=== PATIENT | male | born 1950 | race Caucasian/White ===

== ENCOUNTER 2020-09-08 22:22 | Inpatient (IN) | payer OTHER, MEDICARE ==
[~2020-09-08] VITALS: Ht 170.2 cm; Wt 83.0 kg
[~2020-09-08 22:22] MED LIST: AVALIDE 150-121 EACH; AVALIDE 300-121 EACH PO; AVAPRO300 MG PO; CELEBREX 200 M200 M1 PO; COLACE100 MG PO; CRESTOR10 MG PO; FLEXERIL PO; HYDROCHLOROTH12.5 MG PO; MOBIC15 MG PO; NORCO 10-325 T1 EACH PO; OXYCONTIN10 M1 PO; POLYMYXIN B/TMP10 ML OP; POLYTRIM OPHTHALMIC
[2020-09-08 22:26] VITALS: BP 131/69
[2020-09-08] MEDS ORDERED: CRESTOR20 MG PO (22:30)
[2020-09-08 23:05] LABS: ABSOLUTE NEUTROPHILS 7.4 thou/uL (1.4-8.2); BASOPHILS 0.9 % (0.0-2.0); HEMOGLOBIN 14.8 gm/dL (14.0-18.0); LYMPHOCYTES 21.3 % (24.0-44.0); MCH 31.2 pg (26.0-34.0); MCHC 34.5 g/dL (28.0-37.0); MCV 90.4 fL (80.0-100.0); MONOCYTES 7.7 % (1.0-8.0); PLATELET COUNT 301 thou/uL (150-400); POLYS 67.1 % (36.0-66.0); RBC 4.76 mil/uL (4.50-6.00); RDW 13.9 % (10.5-14.5)
[2020-09-08 23:12] LABS: ANION GAP 8 mmol/L (7-16); BUN 22 mg/dL (7-18); CALCIUM 9.3 mg/dL (8.5-10.1); CHLORIDE 100 mmol/L (98-107); CO2 30 mmol/L (21-32); CREATININE 1.4 mg/dL (0.7-1.3); GLUCOSE 110 mg/dL (74-106); POTASSIUM 3.6 mmol/L (3.5-5.1); SODIUM 138 mmol/L (136-145)
[2020-09-08 23:24] LABS: AMYLASE 154 U/L (25-115); DIRECT BILIRUBIN < 0.1 mg/dL (<0.1-0.2); LIPASE 169 U/L (73-393); SGOT 24 U/L (15-37); SGPT 41 U/L (16-63); TOTAL BILIRUBIN 0.3 mg/dL (0.2-1.0); TOTAL PROTEIN 7.7 g/dL (6.4-8.2); TROPONIN-I <0.06 ng/mL (<0.06)
[2020-09-09] VITALS (13 sets, daily range): BP systolic 105–147; BP diastolic 57–861
--- NOTE | 2020-09-09 02:20 | NUR ---
PATIENT IS A NEW ADMISSION TO THE UNIT THIS SHIFT. HE ARRIVED VIA CART FROM THE ER AND WAS ABLE TO AMBULATE TO THE BED UNASSISTED INCIDENT FREE. PATIENT IS FULLY ALERT AND ORIENTED AND ABLE TO FULLY PARTICIPATE IN ADMISSION AND CALL APPROPRIATELY FOR NEEDS. PATIENT STATES CHEST PAIN IS A "ONE" AND HAS VOICED AN UNDERSTANDING TO CALL NURSE FOR SIGNS AND SYMPTOMS RELAYED BY NURSE. ADMISSION TO BE COMPLETED WITH CARE PLAN INITIATED.
[2020-09-09 06:12] LABS: ANION GAP 9 mmol/L (7-16); BUN 23 mg/dL (7-18); CALCIUM 8.7 mg/dL (8.5-10.1); CHLORIDE 104 mmol/L (98-107); CHOLESTEROL 144 mg/dL (<200); CO2 26 mmol/L (21-32); CREATININE 1.3 mg/dL (0.7-1.3); GLUCOSE 96 mg/dL (74-106); HDL CHOLESTEROL 58 mg/dL (>40); LDL CHOLESTEROL 75 mg/dL (<100); SODIUM 139 mmol/L (136-145); TC:HDL 2.5 Ratio (Not establshd); TRIGLYCERIDE 59 mg/dL (<150); TROPONIN-I <0.06 ng/mL (<0.06); VLDL 12 mg/dL (<40)
[2020-09-09 06:15] LABS: SERUM ASSESSMENT Clear
--- NOTE | 2020-09-09 07:16 | EKG ---
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
--- NOTE | 2020-09-09 07:16 | EKG ---
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: ELIZABETH HONG : 1950 Requested By: Olga Jasso Order Number: [id number] MD: Freddie Mccoy Measurements Intervals [place] Rate: 76 P: 66 [place]: 142 QRS: -14 QRSD: 94 T: 31 QT: 404 QTc: 455 Interpretive Statements Sinus rhythm Low voltage, precordial leads Abnormal R-wave progression, early transition Compared to ECG 09/08/2020 22:28:52 No significant changes Electronically Signed On 09-09-2020 7:16:16 CDT by Freddie Mccoy [email or web address] <ELECTRONICALLY SIGNED> By: Freddie Mccoy MD, [facility] 09/09/20 0716 0 0 Freddie Mccoy MD, FACC /EPI
--- NOTE | 2020-09-09 08:07 | NUR ---
ASSUMED PT CARE AT 0700. PT RESTING. ASSESSMENT PERFORMED CHARTED. VSS. PT EDUCATED ABOUT CARDIAC CATH TODAY THAT IS SCHEDULED. WILL CONTINUE TO MONITOR.
--- NOTE | 2020-09-09 11:02 | 2DMMODE ---
[facility] [place] [address] 2 D/M-MODE ECHOCARDIOGRAM Name: JEFFERY LAWSON Room #: 218-P ADM IN M.R.#: [id number] Admission: 09/09/20 Attend Phys: Francisco Goodson MD Discharge: Date of : 46 Report #: [id number] THIS REPORT FOR: cc: Raghavendra Marroquin MD, Steven A. MD Park, Jin S. MD ~ APPROVED REPORT Study performed: 09/09/2020 10:18:45 EXAM: Comprehensive 2D, Doppler, and color-flow Echocardiogram Patient Location: Bedside Room #: 218 Status: routine BSA: 2.02 HR: 59 bpm BP: 128/71 mmHg Rhythm: Bradycardia Other Information Study Quality: Good Indications CAD Chest Pain Hypertension/HDD 2D Dimensions RVDd: 37.08 mm IVSd: 8.81 (7-11mm) LVOT Diam: 20.19 (18-24mm) LVDd: 45.52 mm PWd: 8.64 (7-11mm) Ascending Ao: 35.76 (22-36mm) LVDs: 30.42 (25-40mm) Aortic Root: 33.00 mm IVC: 15.00 mm Volumes Left Atrial Volume (Systole) Single Plane 4CH: 45.06 mL Single Plane 2CH: 42.05 mL LA ESV Index: 24.00 mL/m2 Aortic Valve AoV Peak Holger.: 1.52 m/s AO Peak Gr.: 9.20 mmHg LVOT Max P.17 mmHg LVOT Max V: 1.43 m/s [facility] [address] [place] [place] [address] 2 D/M-MODE ECHOCARDIOGRAM Name: RENNYJEFFERY Room #: 218-P [facility]#: [id number] Admission: 09/09/20 Attend Phys: Francisco Goodson MD Discharge: Date of : 46 Report #: [id number] SABINA Vmax: 3.02 cm2 Mitral Valve E/A Ratio: 1.6 MV Decel. Time: 189.35 ms MV E Max Holger.: 0.92 m/s MV A Holger.: 0.59 m/s MV PHT: 54.91 ms IVRT: 78.43 ms Pulmonary Valve PV Peak Holger.: 0.92 m/s PV Peak Gr.: 3.40 mmHg Pulmonary Vein P Vein S: 0.65 m/s P Vein A: 0.31 m/s P Vein D: 0.43 m/s P Vein A Dur.: 129.2 msec P Vein S/D Ratio: 1.51 Left Ventricle The left ventricle is normal size. There is normal LV segmental wall motion. There is normal left ventricular wall thickness. Left ventricular systolic function is normal. The left ventricular ejection fraction is within the normal range. LVEF is 55-60%. The left ventricular diastolic function is normal. Right Ventricle The right ventricle is normal size. The right ventricular systolic function is normal. Atria The left atrium size is normal. The right atrium size is normal. Aortic Valve The aortic valve is normal in structure. No aortic regurgitation is present. There is no aortic valvular stenosis. Mitral Valve The mitral valve is normal in structure. There is no mitral valve regurgitation noted. No evidence of mitral valve stenosis. Tricuspid Valve The tricuspid valve is normal in structure. There is no tricuspid valve regurgitation noted. Pulmonic Valve [facility] [place] [address] 2 D/M-MODE ECHOCARDIOGRAM Name: JEFFERY LAWSON Room #: 218-P ADM IN M.R.#: [id number] Admission: 09/09/20 Attend Phys: Francisco Goodson MD Discharge: Date of : 46 Report #: [id number] The pulmonary valve is normal in structure. There is no pulmonic valvular regurgitation. Great Vessels The aortic root is normal in size. IVC is normal in size and collapses >50% with inspiration. Pericardium There is no pericardial effusion. <Conclusion> The left ventricle is normal size. There is normal left ventricular wall thickness. Left ventricular systolic function is normal. The right ventricle is normal size. The left atrium size is normal. The aortic valve is normal in structure. There is no mitral valve regurgitation noted. <ELECTRONICALLY SIGNED> By: Lavon Torres MD 09/09/201100 00 00 Lavon Torres MD /INF
--- NOTE | 2020-09-09 11:09 | NUR ---
PT RESTING WITH AT BEDSIDE. PT INFORMED THAT HE SHOULD BE GOING TO CATH AROUND NOON. PT VOICES NO OTHER CONCERNS AT THIS TIME.
--- NOTE | 2020-09-09 12:51 | NUR ---
pt down in cath lab technologist.
--- NOTE | 2020-09-09 13:56 | NUR ---
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 vss. pt denies pain. pt educated on bed rest period and pts bed rest time will be up at 1730. will continue to monitor.
--- NOTE | 2020-09-09 14:24 | EKG ---
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 : 1950 Requested By: Francisco Goodson Order Number: [id number] : Freddie Mccoy Measurements Intervals [place] Rate: 65 P: 58 TN: 146 QRS: -3 QRSD: 101 T: 33 QT: 418 QTc: 435 Interpretive Statements Sinus rhythm Abnormal R-wave progression, early transition Compared to ECG 09/09/2020 04:21:48 No significant changes Electronically Signed On 09-09-2020 14:24:04 CDT by Freddie Mccoy [email or web address] <ELECTRONICALLY SIGNED> By: Freddie Mccoy MD, [facility] 09/09/20 1424 1355 1355 Freddie Mccoy MD, FACC /EPI
--- NOTE | 2020-09-09 15:14 | CATHLAB ---
[facility] [place] [address] INVASIVE PROCEDURE REPORT Name: JEFFERY LAWSON Room #: 218-P ADM IN M.R.#: [id number] Admission: 09/09/20 Attend Phys: Francisco Goodson MD Discharge: Date of : 46 Report #: [id number] THIS REPORT FOR: cc: Raghavendra Marroquin MD, Steven A. MD Park, Jin S. 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 A PINNACLE 4FR Sheath #[id number] sheath was inserted into the RFA^. Coronary angiography was performed using coronary diagnostic catheters. The right coronary system was accessed and visualized with a JR4 catheter. The left coronary system was accessed and visualized with a JL4 catheter. The left ventricle was accessed and visualized with a JR4 catheter. Left ventricular/Aortic Valve gradient assessed via catheter pullback. Pre-demployment femoral angiogram was performed . Closure device was deployed with a 6 Fr MYNXGRIP 6/7F #[id number]. The patient tolerated the procedure well and there were no complications associated with the procedure. There was no hematoma. [facility] [place] [address] INVASIVE PROCEDURE REPORT Name: JEFFERY LAWSON Room #: 218-P [facility] IN .#: [id number] Admission: 09/09/20 Attend Phys: Francisco Goodson MD Discharge: Date of : 46 Report #: [id number] Intraoperative Conscious Sedation Sedation start time: 12:37 Case end Time: 13:26 Fentanyl 50 mcg Versed 1 mg Fluoro Time: 6.60 minutes Dose: DAP 71446.90 cGycm2 1940 mGy Contrast Type and Amount: Visipaque 120 ml Coronary Angiography The patient's coronary anatomy is co- dominant. Diagnostic Cath Left Main The left main artery is a large-caliber vessel, patent with no flow-limiting lesions. LAD The LAD is a moderate-sized caliber vessel, traverses the anterior wall and terminates in the distal inferior wall. The proximal and mid segments are mildly calcified with mild diffuse stenosis, 20 to 30%. Diagonal 1 This is a moderate-sized caliber vessel, patent with no flow-limiting lesions. Circumflex The left circumflex artery is a codominant vessel, with a severe stenosis in the proximal segment, 90%. OM1 This is a moderate-sized caliber vessel with mild disease in the proximal segment. This vessel supplies several branches as it travels the lateral wall, towards the apex. OM2 This is a small to moderate-sized caliber vessel, patent with no flow-limiting lesions. Right Coronary There is a moderate stenosis in the midsegment, 40%. R PDA This is a small to moderate-sized caliber vessel, patent with no flow-limiting lesions. Left Ventriculography Left Ventriculography was not performed. Ejection Fraction was 55-60% based off patient's Echocardiogram. An LVEDP was measured and there is no gradient across the outflow tract. Hemodynamics The aortic pressure is 129/66 mmHg with a mean of 89 mmHg. The left ventricular pressure is 148/15 mmHg with a mean of mmHg. The left ventricular end diastolic pressure is 31 mmHg. PCI Technique Lesion Percutaneous coronary intervention was performed on the proximal circumflex artery segment. The lesion stenosis prior to intervention was 90% with SUSANA 3 flow. A VISTA 6FR XB 3.5 #[id number] [place] [address] INVASIVE PROCEDURE REPORT Name: JEFFERY LAWSON Room #: 218-P [facility] IN .R.#: [id number] Admission: 09/09/20 Attend Phys: Francisco Goodson MD Discharge: Date of : 46 Report #: [id number] was used to engage the ostium. A Luge Wire .014 x 182CM #[id number] Interventional Guidewire was used to cross the lesion. BALLOON DILATION A Balloon catheter Euphora RX 2.5 x 12 #[id number] was inserted and inflated up to 12.00atm for 19seconds. STENT DEPLOYMENT A drug-eluting stent RESOLUTE YULY RX 3.0 X 15 #[id number] was inserted and inflated up to 12.00atm for 30seconds. POST STENT DEPLOYMENT BALLOON DILATION A Balloon catheter TREK NC RX 3.0 X 12 #[id number] was inserted and inflated up to 18.00atm for 15seconds. Final angiography reveals 0 % stenosis with SUSANA 3 flow. Conclusion 1. Successful insertion of a drug-eluting stent into the codominant left circumflex artery. 2. There is mild to moderate disease in the LAD and RCA. 3. There is normal LV systolic function. 4. Recommend dual antiplatelet therapy and aggressive risk factor management. <ELECTRONICALLY SIGNED> By: Lavon Torres MD 09/09/20 1513 12 12 Lavon Torres MD /INF
[2020-09-10 00:06] LABS: GLYCOHEMOGLOBIN (HGB A1C) 5.3 % (4.8-5.6)
[2020-09-10 01:51] VITALS: BP 117/69
[2020-09-10 04:45] VITALS: BP 118/64
[2020-09-10 04:53] LABS: ALBUMIN 3.2 g/dL (3.4-5.0); CALCIUM 8.7 mg/dL (8.5-10.1); CREATININE 1.2 mg/dL (0.7-1.3); POTASSIUM 3.7 mmol/L (3.5-5.1); TOTAL BILIRUBIN 0.7 mg/dL (0.2-1.0); TOTAL PROTEIN 6.3 g/dL (6.4-8.2)
[2020-09-10 05:03] LABS: HEMATOCRIT 39.1 % (42.0-52.0); HEMOGLOBIN 13.1 gm/dL (14.0-18.0); MCH 30.9 pg (26.0-34.0); MCHC 33.4 g/dL (28.0-37.0); MCV 92.6 fL (80.0-100.0); RBC 4.22 mil/uL (4.50-6.00); RDW 13.8 % (10.5-14.5); WBC 10.3 thou/uL (4.0-11.0)
[2020-09-10 08:20] VITALS: BP 127/69
[2020-09-10 11:50] VITALS: BP 138/68
--- NOTE | 2020-09-10 15:59 | NUR ---
ASSESSMENT CHARTED. PT ALERT AND ORIENTED. VSS. DENIED HAVING PAIN OR DISCOMFORT. AMBULATED X2 THIS SHIFT. REPORT FEELING MUCH BETTER. NO CONCERNS AT THIS TIME. PROGRESS WELL TOWARDS DISCHARGE GOAL.
[2020-09-10 16:25] VITALS: BP 137/65
[2020-09-10 20:15] VITALS: BP 132/77
[2020-09-11 03:02] LABS: HEMOGLOBIN 13.4 gm/dL (14.0-18.0); MCH 30.7 pg (26.0-34.0); MCHC 33.5 g/dL (28.0-37.0); MCV 91.9 fL (80.0-100.0); RBC 4.36 mil/uL (4.50-6.00); RDW 13.7 % (10.5-14.5); WBC 8.7 thou/uL (4.0-11.0)
[2020-09-11 03:11] LABS: CALCIUM 8.5 mg/dL (8.5-10.1); CREATININE 1.3 mg/dL (0.7-1.3); POTASSIUM 3.5 mmol/L (3.5-5.1)
[2020-09-11 04:45] VITALS: BP 130/73
--- NOTE | 2020-09-11 05:52 | NUR ---
PT VSS OVERNIGHT. CATH SITE C/D/I. ONLY BRUISING PRESENT AT SIGHT. PT UP AD XIANG. PT IS NIKOLSKI WHICH IS IMPROVED WHEN HE HAS HIS HEARING AIDES IN. CALL LIGHT WITHIN REACH.
[2020-09-11] MEDS ORDERED: EFFIENT10 MG PO (08:00)
[2020-09-11] MEDS ORDERED: BAYER CHEWABLE81 MG PO (08:00)
[2020-09-11 08:30] VITALS: BP 140/84
[2020-09-11 09:35] VITALS: BP 140/84
--- NOTE | 2020-09-11 10:40 | NUR ---
PT IS AXOX4, PLEASANT. PT DENIES PAIN. VSS, AFEBRILE. PROVIDED PT EDUCATION ON NEW MEDICATION FOR AM, RX EFFIENT. PT COMMUNICATED UNDERSTANDING. DR MATTHEWS CONSULTED. PT DISCHARGED THIS AM TO HOME. PROVIDED EDUCATION ON FOLLOW UP APPOINTMENT AND RX MEDICATION. PT TO DISCHARGE HOME WITH IN PERSONAL VEHICLE. NO CONCERNS AT THIS TIME.
--- NOTE | 2020-09-11 11:27 | EKG ---
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 Facility: [facility] : 1950 Requested By: Lavon Torres Order Number: [id number] MD: Freddie Mccoy Measurements Intervals [place] Rate: 69 P: 62 [place]: 142 QRS: -5 QRSD: 85 T: 31 QT: 402 QTc: 431 Interpretive Statements Sinus rhythm Low voltage, precordial leads Abnormal R-wave progression, early transition Compared to ECG 09/09/2020 13:55:20 Low QRS voltage now present Electronically Signed On 09-11-2020 11:27:30 CDT by Freddie Mccoy [email or web address] <ELECTRONICALLY SIGNED> By: Freddie Mccoy MD, [facility] 09/11/20 1127 08 08 Freddie Mccoy MD, [facility] /EPI
== END 2020-09-11 10:45 | disposition home or self-care (01) | DRG 246 ==
LOC: ER 22:22 → EROBS 09-09 → 2N 09-09
PROVIDERS: Emergency Medicine; Internal Medicine Cardiovascular Disease; Nurse Practitioner Family; ADMIT Hospitalist; ATTEND Hospitalist
DX: I25.110 Atherosclerotic heart disease of native coronary artery with unstable angina pectoris (principal); I50.31 Acute diastolic (congestive) heart failure; E78.5 Hyperlipidemia, unspecified; I11.0 Hypertensive heart disease with heart failure; E78.00 Pure hypercholesterolemia, unspecified; E86.0 Dehydration; Z90.5 Acquired absence of kidney; Z85.528 Personal history of other malignant neoplasm of kidney; Z98.41 Cataract extraction status, right eye; Z98.42 Cataract extraction status, left eye; Z98.52 Vasectomy status; Z87.442 Personal history of urinary calculi; Z79.899 Other long term (current) drug therapy; Z88.0 Allergy status to penicillin; Z82.49 Family history of ischemic heart disease and other diseases of the circulatory system; Z87.891 Personal history of nicotine dependence
CPT/HCPCS: 10081

== ENCOUNTER → 2020-09-26 | Outpatient (CLI) | payer OTHER, MEDICARE ==
[~2020-09-26] MED LIST changes: +BAYER CHEWABLE81 MG PO; +CRESTOR20 MG PO; +EFFIENT10 MG PO
== END ==
LOC: SJCVC 12:56
PROVIDERS: ATTEND Internal Medicine Cardiovascular Disease
DX: I25.10 Atherosclerotic heart disease of native coronary artery without angina pectoris (principal); I10 Essential (primary) hypertension; E78.00 Pure hypercholesterolemia, unspecified; R60.9 Edema, unspecified; Z88.0 Allergy status to penicillin; Z79.82 Long term (current) use of aspirin; Z79.899 Other long term (current) drug therapy; Z87.891 Personal history of nicotine dependence

== ENCOUNTER 2020-11-01 17:46 | Emergency (ER) | payer OTHER, MEDICARE ==
[~2020-11-01] VITALS: Ht 170.2 cm; Wt 79.4 kg
[2020-11-01 17:52] VITALS: BP 137/77
== END 2020-11-01 18:59 | disposition home or self-care (01) ==
LOC: ER 17:46
DX: K22.2 Esophageal obstruction (principal); R11.10 Vomiting, unspecified; I10 Essential (primary) hypertension; E78.00 Pure hypercholesterolemia, unspecified; Z87.442 Personal history of urinary calculi; Z95.5 Presence of coronary angioplasty implant and graft; Z98.890 Other specified postprocedural states; Z79.899 Other long term (current) drug therapy; Z79.82 Long term (current) use of aspirin; Z88.2 Allergy status to sulfonamides; Z87.891 Personal history of nicotine dependence

== ENCOUNTER → 2020-11-23 | Outpatient (CLI) | payer OTHER, MEDICARE ==
[~2020-11-23] VITALS: Ht 170.2 cm; Wt 78.9 kg
[~2020-11-23] MED LIST changes: +ASA81BEC PO; +VITAMIN D325 MC1 PO
--- NOTE | 2020-11-26 11:11 | P ---
[facility] [place] [address] PROCEDURE REPORT Name: JEFFERY LAWSON [facility] [id number] Admission: 11/23/20 Attend Phys: Blanco Young Discharge: Date of : 46 Report #: [id number] THIS REPORT FOR: cc: Raghavendra Marroquin MD, Steven A. MD McElhinney, Christian C. MD ~ DOC #: [id number] cc: MD Blanco Salcido MD DATE OF SERVICE: 11/23/2020 PROCEDURE PERFORMED: Upper endoscopy with esophageal dilation. HISTORY OF PRESENT ILLNESS: The patient is a 70-year-old male with intermittent dysphagia. He does report mild heartburn at times, takes Tums at night. No previous history of endoscopy, at one point actually had a food impaction that past on itself in the Emergency Room. Plan is for upper endoscopy with dilation. DESCRIPTION OF PROCEDURE: The risks and benefits of the procedure were explained to the patient, those risks including but not limited to bleeding, perforation and the risk of sedation. He understood these risks and gave informed consent. Sedation was given using propofol per anesthesia. Next, using a standard Olympus upper endoscope, the scope was placed in the patient's mouth and advanced under direct vision through the esophagus, stomach and into the second portion of the duodenum. In the upper esophagus, 2 inlet patches were noted, otherwise normal. The mid esophagus was normal. In the distal esophagus, there was a moderate Schatzki's ring with grade A erosive esophagitis. The scope did pass with some resistance, however. Upon entering the stomach, a small hiatal hernia was noted. Overall, the gastric mucosa was normal. The pylorus was normal and patent. The duodenal bulb, first and second portion were all normal. The scope was then brought back up into the patient's stomach and a Savary guidewire was inserted through the scope, leaving the guidewire in place as the scope was then withdrawn. Next, a 42-Occitan Savary dilation of the esophagus was then performed without difficulty. The wire and dilator were removed. The scope was reintroduced into the patient's stomach, a small mucosal tear was noted after dilation. No further dilations were performed. The scope was then withdrawn and the procedure terminated. The patient tolerated the procedure well. IMPRESSION: 1. Moderate Schatzki's ring with grade A erosive esophagitis, status post dilation. 2. Small hiatal hernia. 3. Otherwise, normal upper endoscopy. [address] [address] PROCEDURE REPORT Name: JEFFERY LAWSON Room #: REG [facility].#: [id number] Admission: 11/23/20 Attend Phys: Blanco Young Discharge: Date of : 46 Report #: [id number] RECOMMENDATIONS: 1. Observe the patient post-dilation. 2. Repeat on a p.r.n. basis. 3. Would recommend daily PPI therapy. Thank you for allowing me to participate in his care. Blanco Duarte MD CCM/KDA <ELECTRONICALLY SIGNED> By: Blanco Duarte MD 11/26/20 1111 1202 2158 Blanco Duarte MD /nt
== END | disposition home or self-care (01) ==
LOC: GI 10:10
PROVIDERS: ATTEND Specialist
DX: R13.10 Dysphagia, unspecified (principal); R12 Heartburn; K22.2 Esophageal obstruction; K22.10 Ulcer of esophagus without bleeding; K44.9 Diaphragmatic hernia without obstruction or gangrene; I10 Essential (primary) hypertension; E78.5 Hyperlipidemia, unspecified; Z87.891 Personal history of nicotine dependence; Z85.528 Personal history of other malignant neoplasm of kidney; Z87.442 Personal history of urinary calculi; Z98.890 Other specified postprocedural states; Z79.899 Other long term (current) drug therapy; Z88.0 Allergy status to penicillin
CPT/HCPCS: 62110; 62900

== ENCOUNTER → 2021-03-29 | Outpatient (CLI) | payer OTHER, MEDICARE | LOC: SJCVC 13:22 | PROVIDERS: ATTEND Internal Medicine Cardiovascular Disease | DX: I25.10 Atherosclerotic heart disease of native coronary artery without angina pectoris (principal); I10 Essential (primary) hypertension; E78.00 Pure hypercholesterolemia, unspecified; R60.9 Edema, unspecified; Z87.891 Personal history of nicotine dependence; Z79.82 Long term (current) use of aspirin; Z79.899 Other long term (current) drug therapy; Z88.0 Allergy status to penicillin; Z82.49 Family history of ischemic heart disease and other diseases of the circulatory system ==